=== PATIENT | male | born 1985 | race Caucasian/White ===

== ENCOUNTER 2017-10-24 12:05 | Emergency (ER) | payer BC, OTHER ==
[2017-10-24 12:37] VITALS: BP 142/89
--- NOTE | 2017-10-24 12:37 | UC ---
Throat Pain/Nasal Neo HPI - HPI Summary HPI Summary: ONE WEEK OF COUGH AND NASAL DRAINAGE. HAS TAKEN DAYQUIL AND NYQUIL. COUGH CONTINUES. NO FEVER. - History of Current Complaint Chief Complaint: UCGeneralIllness Stated Complaint: COUGH Time Seen by Provider: 10/24/17 12:18 Hx Obtained From: Patient Onset/Duration: Gradual Onset, Lasting Days Severity: Mild Cough: Nonproductive Associated Signs & Symptoms: Positive: Hoarseness - Epiglottits Risk Factors Epiglottis Risk Factors: Negative - Allergies/Home Medications Allergies/Adverse Reactions: Allergies Allergy/AdvReac Type Severity Reaction Status Date / Time No Known Allergies Allergy Verified 10/24/17 12:15 Home Medications: Home Medications Dextromethorphan-Phenylephrine [Day Time Multi-Symptom Co 10-5-325 mg] [History] PMH/Surg Hx/FS Hx/Imm Hx Previously Healthy: Yes - Surgical History Surgical History: None - Family History Known Family History: Negative: Respiratory Disease - Social History Occupation: Employed Full-time Lives: With Family Alcohol Use: Occasionally Substance Use Type: None Smoking Status (MU): Never Smoked Tobacco - Immunization History Most Recent Influenza Vaccination: NOT CURRENT Review of Systems Constitutional: Negative Skin: Negative Eyes: Negative ENT: Nasal Discharge Respiratory: Cough Cardiovascular: Negative Gastrointestinal: Negative Genitourinary: Negative Motor: Negative Neurovascular: Negative Musculoskeletal: Negative Neurological: Negative Psychological: Negative Is Patient Immunocompromised?: No All Other Systems Reviewed And Are Negative: Yes Physical Exam Triage Information Reviewed: Yes Appearance: No Pain Distress, Well-Nourished, Ill-Appearing - MILDLY Vital Signs: Initial Vital Signs Temp 97.6 F 10/24/17 12:10 Pulse 68 10/24/17 12:10 Resp 18 10/24/17 12:10 BP 142/89 10/24/17 12:10 Pulse Ox 100 10/24/17 12:10 Vital Signs Reviewed: Yes Eye Exam: Normal ENT Exam: Normal ENT: Positive: Normal ENT inspection, Hearing grossly normal, Pharynx normal Dental Exam: Normal Neck exam: Normal Neck: Positive: Supple, Nontender, No Lymphadenopathy Respiratory Exam: Other - COUGH Respiratory: Positive: Chest non-tender, Lungs clear, Normal breath sounds, No respiratory distress, No accessory muscle use Cardiovascular Exam: Normal Cardiovascular: Positive: RRR, No Murmur, Pulses Normal, Brisk Capillary Refill Abdominal Exam: Normal Musculoskeletal Exam: Normal Musculoskeletal: Positive: Strength Intact, ROM Intact Neurological Exam: Normal Psychological Exam: Normal Skin Exam: Normal Throat Pain/Nasal Course/Dx - Differential Dx/Diagnosis Differential Diagnosis/HQI/PQRI: Pharyngitis, Sinusitis, URI Provider Diagnoses: UPPER RESPIRATORY INFECTION Discharge - Discharge Plan Condition: Stable Disposition: HOME Prescriptions: Benzonatate CAP* [Tessalon 100 MG CAP*] 100 mg PO TID PRN #15 cap PRN Reason: Cough Patient Education Materials: Upper Respiratory Infection (ED) Referrals: [facility] [Outside] No Primary Care Phys,NOPCP [Primary Care Provider] -
== END 2017-10-24 12:38 | disposition home or self-care (01) ==
LOC: UCCORT 12:05
DX: J06.9 Acute upper respiratory infection, unspecified (principal)
CPT/HCPCS: 99202; G0463

== ENCOUNTER 2017-11-11 08:51 | Emergency (ER) | payer OTHER ==
[2017-11-11 09:16] VITALS: BP 148/87
--- NOTE | 2017-11-11 10:02 | UC ---
Respiratory Complaint HPI - HPI Summary HPI Summary: 32 year old male with cough. Cough for one month, pt was seen here 2 weeks ago and was prescribed cough med. Sore throat is worsening for past 5 days; phlegm is increasing. also with sinus pressure and ear pressure. [ End ] - History of Current Complaint Chief Complaint: UCRespiratory Stated Complaint: COUGH/ST Time Seen by Provider: 11/11/17 09:59 Hx Obtained From: Patient Onset/Duration: Gradual Onset Timing: Constant Severity Initially: Mild Severity Currently: Moderate Character: Cough: Productive Related History: Similar Episode/Dx as: - Allergies/Home Medications Allergies/Adverse Reactions: Allergies Allergy/AdvReac Type Severity Reaction Status Date / Time seasonal Allergy Eyes Uncoded 11/11/17 09:17 Itchy/Swollen/Red/Watery Home Medications: Home Medications [id number]-[id number] [Nyquil Severe Cold/Flu 5-6.25-10-325 mg/15Ml] 2 tab PO SEE INSTRUCTIONS PRN 11/11/17 [History Confirmed 11/11/17] PMH/Surg Hx/FS Hx/Imm Hx Previously Healthy: Yes - Surgical History Surgical History: None - Family History Known Family History: Negative: Respiratory Disease - Social History Occupation: Employed Full-time Lives: With Family Alcohol Use: Occasionally Substance Use Type: None Smoking Status (MU): Current Every Day Smoker Have You Smoked in the Last Year: Yes Cessation Counseling: Patient Advised to Stop - Immunization History Most Recent Influenza Vaccination: NOT CURRENT Review of Systems Constitutional: Fatigue ENT: Sore Throat, Ear Ache, Sinus Congestion, Sinus Pain/Tenderness Respiratory: Cough Is Patient Immunocompromised?: No All Other Systems Reviewed And Are Negative: Yes Physical Exam Triage Information Reviewed: Yes Appearance: Well-Appearing, No Pain Distress, Well-Nourished Vital Signs: Initial Vital Signs Temp 98.3 F 11/11/17 09:10 Pulse 71 11/11/17 09:10 BP 148/87 11/11/17 09:10 Pulse Ox 100 11/11/17 09:10 Vital Signs Reviewed: Yes Eye Exam: Normal ENT Exam: Normal ENT: Positive: Nasal congestion, Nasal drainage, TM bulging, TM dull, TM red - left, Sinus tenderness Dental Exam: Normal Neck exam: Normal Neck: Positive: 1 Respiratory Exam: Normal Cardiovascular Exam: Normal Musculoskeletal Exam: Normal Neurological Exam: Normal Psychological Exam: Normal Skin Exam: Normal UC Diagnostic Evaluation - Laboratory O2 Sat by Pulse Oximetry: 100 Respiratory Course/Dx - Differential Dx/Diagnosis Differential Diagnosis/HQI/PQRI: Bronchitis, Lower Resp Infection, Sinusitis Provider Diagnoses: Sinusitis and Left AOM Discharge - Discharge Plan Condition: Good Disposition: HOME Prescriptions: Amoxicillin/Clavulanate TAB* [Augmentin TAB 875*] 875 mg PO BID #20 tab Benzonatate [Benzonatate 200 MG] 200 mg PO TID PRN #20 cap PRN Reason: Cough Patient Education Materials: Otitis Media (ED) Referrals: No Primary Care Phys,NOPCP [Primary Care Provider] - 4 Days (If needed )
== END 2017-11-11 10:19 | disposition home or self-care (01) ==
LOC: UCCORT 08:51
DX: J32.9 Chronic sinusitis, unspecified (principal); H66.92 Otitis media, unspecified, left ear; F17.290 Nicotine dependence, other tobacco product, uncomplicated; Z91.048 Other nonmedicinal substance allergy status
CPT/HCPCS: 99212; G0463